=== PATIENT | male | born 1970 | race Caucasian/White ===

== ENCOUNTER 2021-04-24 07:10 | Emergency (ER) | payer BC, OTHER ==
[2021-04-24] MEDS ORDERED: Diphtheria,Pertussis(Acell),Tetanus Vaccine 0.5 ML Syringe IM ONE (08:05)
--- NOTE | 2021-04-24 08:18 | EDM.PDOC ---
ED HPI GENERAL MEDICAL PROBLEM - General Chief Complaint: Laceration Stated Complaint: laceration Time Seen by Provider: 04/24/21 07:30 Source of Information: Reports: Patient History Limitations: Reports: No Limitations - History of Present Illness INITIAL COMMENTS - FREE TEXT/NARRATIVE: Pt. sustained a laceration to medial aspect of R thumb. Pt. states that the piece of metal he was working on got stuck on the tool, causing a laceration to his thumb. His tetanus is not up to date. Pt. was also found to be extremely hypertensive. Perviously he had been on lisinopril/HCTZ but stopped taking the medication when his previous healthcare provider left the area. He has been off the medication for years. Pt. denies any problems with ROM/deep pain in the thumb. He also denies any chest pain, shortness of breath, or headache. Onset: Today Onset Date: 04/24/21 Location: Reports: Upper Extremity, Left Treatments [employer]: Reports: Dressing(s) - Related Data Allergies Allergy/AdvReac Type Severity Reaction Status Date / Time Penicillins Allergy Unknown Cannot Verified 04/24/21 07:21 Remember Home Meds: Home Meds Cetirizine [ZyrTEC] 1 tab PO DAILY 04/24/21 [History] Ibuprofen 800 mg PO ASDIRECTED PRN 04/24/21 [History] Social & Family History - Tobacco Use Tobacco Use Status *Q: Current Every Day Tobacco User Years of Tobacco use: 20 Packs/Tins Daily: 1 Tobacco Use Comment: states uses chewing tobacco daily and a cigarette occassionally Second Hand Smoke Exposure: No - Caffeine Use Caffeine Use: Reports: Coffee Other Caffeine Use: rare, in winter - Alcohol Use Days Per Week of Alcohol Use: 4 Number of Drinks Per Day: 5 Total Drinks Per Week: 20 Date of Last Drink: 04/23/21 - Recreational Drug Use Recreational Drug Use: No ED ROS GENERAL - Review of Systems Review Of Systems: See Below Constitutional: Reports: No Symptoms HEENT: Reports: No Symptoms Respiratory: Reports: No Symptoms Cardiovascular: Reports: Blood Pressure Problem Endocrine: Reports: No Symptoms GI/Abdominal: Reports: No Symptoms : Reports: No Symptoms Musculoskeletal: Reports: Hand Pain Skin: Reports: No Symptoms Neurological: Reports: No Symptoms Psychiatric: Reports: No Symptoms Hematologic/Lymphatic: Reports: No Symptoms Immunologic: Reports: No Symptoms ED EXAM, GENERAL - Physical Exam Exam: See Below Exam Limited By: No Limitations General Appearance: Alert, WD/WN, No Apparent Distress Skin Exam: Warm, Dry, Intact, Normal Color, No Rash, Other (Approx. 1 cm curved, shallow laceration noted to medial base of R thumb. No obvious bony deformity noted. The skin flap that covers the laceration is too shallow to suture.) ED GENERAL MEDICAL PROCEDURES - Laceration/Wound Repair Right Digit - 1st (Thumb) Lac/wound length in cm: 1 Appearance: Subcutaneous, Mildly Contaminated Distal NVT: Neuro & Vascular Intact, No Tendon Injury Local Anesthesia - Lidocaine (Xylocaine): 1% Plain Local Anesthetic Volume: 3cc Skin Prep: Chlorhexidine (Hibiciens), Saline Exploration/Debridement/Repair: Wound Explored Progress/Comments: There is a skin flap covering the laceration. The skin flap is very thin and devitalized and cannot be sutured. Area was anesthetized with 3 ml of 1% lidocaine and the skin flap was excised with an iris scissors. Course - Vital Signs Last Recorded V/S: Last Vital Signs Temp 36.5 C 04/24/21 07:15 Pulse 72 04/24/21 07:48 Resp 20 04/24/21 07:15 BP 172/104 H 04/24/21 07:48 Pulse Ox 100 04/24/21 07:15 - Orders/Labs/Meds Orders: Active Orders 24 hr Category Date Time Status Vaccine to be Administered/Admin Charge [RC] ASDIRECTED Care 04/24/21 08:06 Ordered Meds: Medications Discontinued Medications Generic Name Dose Route Start Last Admin Trade Name Jeanq PRN Reason Stop Dose Admin Diphtheria/Tetanus/Acell Pertussis 0.5 ml 04/24/21 08:05 Diphtheria,Pertussis(Acell),Tetanus Vaccine 0.5 Ml Syringe IM 04/24/21 08:06 .ONCE ONE Lidocaine HCl 5 ml 04/24/21 07:45 04/24/21 07:47 Lidocaine 1% 5 Ml Sdv INJECT 04/24/21 07:46 5 ml ONETIME ONE Administration Departure - Departure Time of Disposition: 08:15 Disposition: Home, Self-Care 01 Clinical Impression: Laceration, Hypertension - Discharge Information Instructions: Laceration Care, Adult Forms: ED Department Discharge Additional Instructions: Keep covered if you anticipate getting the area dirty. Otherwise, keep open to the air as much as possible. Tylenol and ibuprofen as needed for discomfort. Start lisinopril 10mg once daily. Follow-up in clinic in 1 month for recheck of your blood pressure. Return to ER if you notice any redness, swelling, or discharge from the area of the laceration. Sepsis Event Note (ED) - Focused Exam Vital Signs: Vital Signs Temp Pulse Resp BP Pulse Ox 04/24/21 07:48 72 172/104 H 04/24/21 07:15 36.5 C 88 20 185/104 H 100 - Problem List Review Problem List Initiated/Reviewed/Updated: Yes - My Orders Last 24 Hours: My Active Orders 04/24/21 08:06 Vaccine to be Administered/Admin Charge [RC] ASDIRECTED - Assessment/Plan Last 24 Hours: My Active Orders 04/24/21 08:06 Vaccine to be Administered/Admin Charge [RC] ASDIRECTED Plan: Dressing was applied. He can keep the area covered if he anticipates the area getting dirty. Otherwise, keep open to the air as much as possible. Tetanus was updated. It had not been since 1978. Took the opportunity to start the patient on lisinopril 10mg once daily. He needs to establish care and follow-up for recheck/refill. Discussed the need for blood pressure control and the ramifications of uncontrolled hypertension.
== END 2021-04-24 08:15 | disposition home or self-care (01) ==
LOC: LL.ED 07:10
DX: S61.011A Laceration without foreign body of right thumb without damage to nail, initial encounter (principal); I10 Essential (primary) hypertension; F17.210 Nicotine dependence, cigarettes, uncomplicated; F17.220 Nicotine dependence, chewing tobacco, uncomplicated; Z23 Encounter for immunization; Z88.0 Allergy status to penicillin; W26.8XXA Contact with other sharp object(s), not elsewhere classified, initial encounter
CPT/HCPCS: 12001; 90471; 90715; 99282-25; 99283

== ENCOUNTER 2021-08-08 07:49 | Emergency (ER) | payer OTHER, BC ==
[2021-08-08] MEDS ORDERED: Bupivacaine 0.5% 10 ML SDV INJECT ONE (08:18)
[2021-08-08] MEDS ORDERED: Bacitracin/Neomycin/Polymyxin B Oint 0.9 GM U/D Packet TOP ONE (09:21)
== END 2021-08-08 10:00 | disposition home or self-care (01) ==
LOC: LL.ED 07:49
DX: S61.213A Laceration without foreign body of left middle finger without damage to nail, initial encounter (principal); S60.132A Contusion of left middle finger with damage to nail, initial encounter; S60.142A Contusion of left ring finger with damage to nail, initial encounter; Z88.0 Allergy status to penicillin; Z79.899 Other long term (current) drug therapy; W26.8XXA Contact with other sharp object(s), not elsewhere classified, initial encounter
CPT/HCPCS: 11740; 12002; 73140-F2; 99283-25; 99284; J3490